=== PATIENT | male | born 1980 ===

== ENCOUNTER → 2017-06-14 | Outpatient (CLI) | payer OTHER ==
[2017-06-14 12:32] LABS: BASO % 0.3 %; BASO ABS # 0.02 K/uL (0-0.2); EOS % 1.8 %; EOS ABS # 0.13 K/uL (0-0.5); HEMATOCRIT 43.5 % (42-52); IG# 0.02 K/uL (0.00-0.02); LYMPH % 35.4 %; LYMPH ABS # 2.59 K/uL (1.2-3.4); MEAN CELL VOLUME 89.9 fL (80-100); MEAN CORPUSCULAR HGB CONC 34.5 g/dl (32-36); MEAN PLATELET VOLUME 11.2 fL (7.4-10.4); MONO % 5.5 %; NEUT % 56.7 %; NEUT ABS # 4.15 K/uL (1.4-6.5); PLATELET COUNT 231 K/uL (130-400); RED CELL DISTRIBUTION WIDTH CV 12.5 % (11.5-14.5); RED CELL DISTRIBUTION WIDTH SD 40.6 fL (36.4-46.3); WHITE BLOOD COUNT 7.31 K/uL (4.8-10.8)
[2017-06-14 13:14] LABS: HEMOGLOBIN A1C 10.7 % (4.5-5.6)
[2017-06-14 13:54] LABS: ALBUMIN 3.8 gm/dl (3.4-5.0); ALT/SGPT 62 U/L (12-78); AST/SGOT 28 U/L (15-37); BLOOD UREA NITROGEN 16 mg/dl (7-18); CALCIUM 9.5 mg/dl (8.5-10.1); CARBON DIOXIDE 27 mmol/L (21-32); CREATININE 1.19 mg/dl (0.60-1.40); GLUCOSE 322 mg/dl (70-99); POTASSIUM 4.4 mmol/L (3.5-5.1); SODIUM 132 mmol/L (136-145); TOTAL PROTEIN 7.6 gm/dl (6.4-8.2)
[2017-06-14 14:01] LABS: ALKALINE PHOSPHATASE 79 U/L (45-117); CHOLESTEROL 205 mg/dl (0-200); LDL CHOLESTEROL CALCULATED 125 mg/dl
== END | disposition home or self-care (01) ==
LOC: C.LABMFLN 08:37
PROVIDERS: ATTEND Physician Assistant
DX: E11.9 Type 2 diabetes mellitus without complications (principal); E78.5 Hyperlipidemia, unspecified; I10 Essential (primary) hypertension